=== PATIENT | female | born 1970 | race Caucasian/White ===

== ENCOUNTER 2020-04-01 04:46 | Inpatient (IN) | payer SELFPAY ==
[2020-04-01] VITALS (13 sets, daily range): BP systolic 77–126; BP diastolic 47–93; PULSE 87–131; RESP 12–23; TEMP 36–36.8; O2SAT 94–98; BMI 20.4
--- NOTE | ~2020-04-01 | XR_ITS ---
EXAMINATION: XR chest 1V portable DATE: 04/01/2020 06:13 INDICATION: Shortness of breath. TECHNIQUE: A single frontal view of the chest was obtained. COMPARISON: None. FINDINGS: There is a diffuse interstitial pattern, consistent with mild pulmonary edema. There are ai rspace opacities in right perihilar region and left lower lung zone. No pleural effusion or pneumotho rax. The heart size is normal. IMPRESSION: 1. Mild pulmonary edema. 2. Airspace opacities in right perihilar region and left lower lung zone, consistent with atelectasis versus pneumonia. Reviewed, dictated and finalized at location A. IMPRESSION: 1. Mild pulmonary edema. 2. Airspace opacities in right perihilar region and left lower lung zone, consi stent with atelectasis versus pneumonia.
--- NOTE | 2020-04-01 04:50 | ED.SOB ---
HPI - SOB/Dyspnea General Chief Complaint: Shortness of Breath/Dyspnea Stated Complaint: sob Time Seen by Provider: 04/01/20 04:50 History of Present Illness HPI Narrative: She reports that she just can't catch her breath and she has pressure in her chest. She reports that she was just admitted to a hospital in [place] for an NE. They were going to take her to the labeling specialist, but she signed out AMA. History limited by patient condition Related Data Home Medications Medication Instructions Recorded Confirmed No Home Medications 04/01/20 04/01/20 Allergies Allergy/AdvReac Type Severity Reaction Status Date / Time codeine AdvReac Itching Verified 04/01/20 05:01 Review of Systems Review of Systems: ROS unobtainable: Yes unobtainable due to medical condition Cardiovascular: Cardiovascular: Reports chest pain Respiratory: Respiratory: Reports dyspnea [facility] Past Medical History Medical History (Updated 04/01/20 @ 06:18 by Eriberto Rothman MD) CAD (coronary artery disease) Social History Social History (Updated 04/01/20 @ 06:02 by Eriberto Rothman MD) Smoking status: Current every day smoker Exam Const: General: alert and ill appearing Other: moderate distress HENMT: Head: normal to inspection Resp: Effort & Inspection: tachypneic Auscultation: clear to auscultation bilaterally Cardio: Rate: tachycardic Rhythm: regular rhythm GI: GI Palp: Yes Soft to palpation and No Tenderness to palpation present (GI) Skin: General skin exam: normal color Neuro: General: patient oriented x3 and moves all extremities Extrem: General: no edema Course Vital Signs Vital signs: Vital Signs Temperature 36.8 C 04/01/20 04:50 Pulse Rate 131 H 04/01/20 04:50 Respiratory Rate 23 H 04/01/20 04:50 Blood Pressure 126/93 H 04/01/20 04:50 Pulse Oximetry 98 04/01/20 04:50 Temperature 36.8 C 04/01/20 04:50 Pulse Rate 131 H 04/01/20 04:50 Respiratory Rate 23 H 04/01/20 04:50 Blood Pressure 126/93 H 04/01/20 04:50 Pulse Oximetry 98 04/01/20 04:50 MDM - SOB/Dyspnea MDM Narrative Medical decision making narrative: Attempting to obtain medical records. EKG shows LBBB. No acute changes. Troponin 0.188. Case discussed with cardiology. They recommend admitting and keeping NPO. Differential Diagnosis Differential diagnosis: Likely other (STEMI, NSTEMI, anxiety attack, COPD) Medical Records Attestation: I reviewed the patient's medical records. Lab Data Attestation: I reviewed the patient's lab results. Result diagrams: 04/01/20 05:09 04/01/20 05:09 Labs: Lab Results 04/01/20 04/01/20 04/01/20 Range/Units 05:09 05:09 05:09 WBC 6.7 (4.5-10.0) K/mm3 RBC 3.51 L (4.2-5.4) M/mm3 Hgb 11.6 L (12.0-15.0) g/dL Hct 33.6 L (37.0-47.0) % MCV 95.7 (80-100) fl MCH 33.0 (26-34) pg MCHC 34.5 (32-36) g/dl RDW 15.2 H (11.5-14.5) % Plt Count 417 H (150-375) k/mm3 MPV 8.8 (7.4-10.4) fl Immature Gran % (Auto) 0.3 (0-0.5) % Neut % (Auto) 50.8 (45.5-73.1) % Lymph % (Auto) 40.0 (18.3-44.2) % Woods % (Auto) 5.8 (2.6-8.5) % Eos % (Auto) 2.5 (0-4.4) % Baso % (Auto) 0.6 (0.2-1.2) % Lymph # (Auto) 2.67 (0.9-3.2) K/mm3 Woods # (Auto) 0.4 (0.1-0.6) K/mm3 Eos # (Auto) 0.2 (0-0.3) K/mm3 Baso # (Auto) 0.0 (0.0-0.1) K/mm3 Abs Immat Gran (auto) 0.02 (0.00-0.031) K/mm3 Absolute Neuts (auto) 3.4 (1.3-6.7) K/mm3 Absolute Nucleated RBC 0.0 (0.0-0.012) K/mm3 Nucleated RBC % 0.0 (0.0-0.2) % PT 12.2 (11.1-14.7) Seconds INR 0.9 APTT 26.4 (22.3-36.8) SECONDS Sodium 138 (137-145) mmol/L Potassium 3.8 (3.4-5.0) mmol/L Chloride 109 H (98-107) mmol/L Carbon Dioxide 25 (22-30) mmol/L BUN 9 (7-17) mg/dL Creatinine 0.80 (0.7-1.0) mg/dL Estim Creat Clear Calc 66 ml/min Estimated GFR > 60 (59 - ) Glucose 135 H (65-105)
[2020-04-01] MEDS: LORAZEPAM INJ 2 MG/ML VIAL 1 MG IV PUSH (05:03)
--- NOTE | 2020-04-01 05:03 | ECG_ITS ---
Measurements Intervals [place] Rate: 84 P: 78 [place]: 105 QRS: 27 QRSD: 152 T: 260 QT: 356 QTc: 422 Interpretive Statements SINUS RHYTHM WITH SHORT [place] INTERVAL LEFT ATRIAL ENLARGEMENT LEFT BUNDLE BRANCH BLOCK BASELINE ARTIFACT- I, II, III, AVL, AVF, V1-V2 ABNORMAL ECG Electronically Signed On 04-01-2020 7:08:27 CDT by Rogelio Rothman D.O.
[2020-04-01 05:19] LABS: Basophils Percent Auto 0.6 % (0.2-1.2); Eosinophils Absolute Auto 0.2 K/mm3 (0-0.3); Eosinophils Percent Auto 2.5 % (0-4.4); Hematocrit 33.6 % (37.0-47.0); Hemoglobin 11.6 g/dL (12.0-15.0); Immature Granulocyte Absolute 0.02 K/mm3 (0.00-0.031); Immature Granulocyte Percent A 0.3 % (0-0.5); Lymphocytes Absolute Auto 2.67 K/mm3 (0.9-3.2); Mean Corpuscular HGB Conc 34.5 g/dl (32-36); Mean Corpuscular Volume 95.7 fl (80-100); Mean Platelet Volume 8.8 fl (7.4-10.4); Monocytes Absolute Auto 0.4 K/mm3 (0.1-0.6); Monocytes Percent Auto 5.8 % (2.6-8.5); Neutrophils Absolute Auto 3.4 K/mm3 (1.3-6.7); Neutrophils Percent Auto 50.8 % (45.5-73.1); Platelet Count Result 417 k/mm3 (150-375); Red Blood Count 3.51 M/mm3 (4.2-5.4); Red Cell Distribution Width 15.2 % (11.5-14.5); White Blood Count 6.7 K/mm3 (4.5-10.0)
[2020-04-01 05:30] LABS: Alanine Aminotransferase 24 U/L (4-35); Albumin Level 3.6 g/dL (3.5-5.1); Alkaline Phosphatase 102 U/L (38-126); Aspartate Amino Transferase 25 U/L (14-36); Bilirubin,Total 0.2 mg/dL (0.2-1.3); Blood Urea Nitrogen 9 mg/dL (7-17); Calcium 8.7 mg/dL (8.4-10.2); Carbon Dioxide 25 mmol/L (22-30); Chloride 109 mmol/L (98-107); Estimated CRCL calculation 66 ml/min; Estimated Glomerular Filt Rate > 60; Glucose 135 mg/dL (65-105); INR 0.9; Partial Thromboplastin Time 26.4 SECONDS (22.3-36.8); Potassium 3.8 mmol/L (3.4-5.0); Prothrombin Time 12.2 Seconds (11.1-14.7); Sodium 138 mmol/L (137-145)
[2020-04-01 05:45] LABS: Troponin I 0.188 ng/mL (0.000-0.034)
--- NOTE | 2020-04-01 06:23 | ECG_ITS ---
Measurements Intervals [place] Rate: 111 P: 74 DC: 132 QRS: 24 QRSD: 165 T: 268 QT: 401 QTc: 546 Interpretive Statements SINUS TACHYCARDIA LEFT ATRIAL ENLARGEMENT LEFT BUNDLE BRANCH BLOCK ABNORMAL ECG Electronically Signed On 04-01-2020 7:09:29 CDT by Rogelio Rothman D.O.
[2020-04-01] MEDS: HEPARIN SODIUM 5,000 UNITS/ML VIAL 3500 UNITS IV PUSH (06:42)
[2020-04-01] MEDS: HEPARIN SOD/D5W 100 UNITS/ML 25,000 UNITS/250 ML BAG 7 UNITS IV CONT (06:43)
[2020-04-01] MEDS: CLOPIDOGREL BISULFATE 300 MG TABLET PO (06:48)
--- NOTE | 2020-04-01 07:58 | PC.NURSE ---
pt noted to be sleeping, ra saturation at 88-89%, placed on 2L via NC.
--- NOTE | 2020-04-01 08:04 | PC.NURSE ---
This patient, Britney Alcala, was admitted to IMU Room 212-01. Patient/family oriented to hospital policies and general routines including ID bracelet, bed and alarms, visiting hours, pain management, procedures, bathroom and other care routines, personal items, smoking policy, room service/diet, and visiting hours. Valuables list has been completed. Information on how to activate the Rapid Response Team has been discussed. Patient/Family are encouraged to report perceived risks to care and to ask questions if they do not understand what they are told or what they should do.
[2020-04-01 08:54] LABS: Troponin I 0.174 ng/mL (0.000-0.034)
--- NOTE | 2020-04-01 08:57 | PM.CNCAR ---
Assessment and Plan Additional Plan This is a 49-year-old white female with apparent coronary artery disease with a hospitalization 10 days ago used in [place] where she apparently had a myocardial infarction. After this she has a left bundle-branch block. Angiography was recommended and as stated above refused by the patient because she was told they would not perform the procedure with anesthesia. She then left the hospital against medical advice. She has therefore not been taking any medications for her heart disease. She enters the hospital now with what appears to be some left-sided congestive heart failure symptoms of shortness of breath coughing or and orthopnea. She does have a 3rd heart sound on physical exam no cardiac murmurs. Today I would recommend initiating beta-bhavana, MUKUL-inhibitor and diuretic treatment for her ischemic heart disease and presumed ischemic LV dysfunction. Obviously I would normally recommend aspirin which at the moment she is refusing. An echocardiogram will be done today to assess the extent of LV systolic dysfunction that she currently has. Hopefully when she is breathing more comfortably later in the week she can undergo angiography and hopefully by then she will become agreeable to taking anti-platelet therapy. I did stress to the patient that we are significantly handicapped in terms of what treatment we can offer if she cannot take/or refuses to take anti-platelet agent Nathan Christina MD [facility] History of Present Illness History of Present Illness Consult date/time: Date of service: 04/01/20 08:57 Consult reason: shortness of breath Reason For Visit: NSTEMI Narrative: This is a 49-year-old lady of seeing at the request of the hospitalist this morning because of shortness of breath that she for which she was seen in the emergency room a short time ago this morning. Patient indicated that she has previously not known to have any cardiac problems until she was hospitalized in [facility] and was told that she had suffered a myocardial infarction. She states that this occurred 10 days ago. She was down in [place] on vacation was shopping in [employer] and became suddenly symptomatic with relatively severe retrosternal chest pain. She says she had a episode of symptoms like this there were mild earlier in the day. This was quite severe so she called EMS and was taken to a local hospital in [place]. She states she was hospitalized there for about 48 hours and catheterization was recommended and the patient left the hospital against medical advice. She states the reason she chose to do this is because she was told that she could not be put to sleep with anesthesia for an angiogram and she indicated she was not capable of tolerating procedures such as this without being under general anesthesia. She therefore has not been taking any medication at all and in the last several days has been noticing symptoms of progressively worsening shortness of breath she describes in the last 2-3 days she has been on in capable of laying down to go to sleep without having to wake up and sit up to avoid shortness of breath. She also coughed violently when she lays down in the supine position. She no longer having any of the chest pain that she described 10 days ago that led to the hospitalization in [place]. She again she denies any previous knowledge of coronary artery disease. She has this severe concerned about needing to be anesthetized for procedures which stem from the difficulties she has had undergoing procedures to treat her Crohn's disease. She states that she has a longstanding history of Crohn's disease since she was a teenager. She has had some colonoscopies as well as some laparoscopic procedures and she states that she is unable to tolerate anything at all without being under general anesthetic or she becomes combative and impossible to control. She is currently uncomfortable with her breathing sitting up in bed and is not r
--- NOTE | 2020-04-01 09:00 | ECHO_ITS ---
Patient Info Name: Britney Alcala Age: 49 years : 1970 Gender: Female Ht: 67 in Wt: 130 lbs BSA: 1.67 m2 HR: 100 bpm BP: 106 / 72 mmHg Heart Rhythm: Left Bundle Branch Block, Sinus Rhythm Technical Quality: Good Exam Date: 04/01/2020 10:09 AM Exam Location: [facility] Patient Status: Inpatient Admit Date: 04/01/2020 Staff Ordering Physician: Nathan Christina MD Athletic Monitor: Mac Bailey RDCS Attending Provider: Saray Carrasquillo DO Referring Physician: Sanford MAKI; Exam Type: CA echo doppler color flow Study Info Indications I21.4 - Non-ST elevation (NSTEMI) myocardial infarction Complete two-dimensional, color flow and Doppler transthoracic echocardiogram is performed. Strain analysis performed. History/Risk Factors NSTEMI; SOB, chest pain, LBBB. Summary 1. Left ventricular chamber dimension is severely enlarged. 2. Left ventricular systolic function is severely reduced, estimated at 25-30%. 3. Left ventricular septal wall motion is abnormal with septal motion related to bundle branch block. 4. E/e' 32.1 is severely elevated. 5. Global longitudinal strain is severely elevated at -6 %. 6. Moderate pulmonary hypertension, estimated pulmonary arterial systolic pressure is 53 mmHg. 7. There is moderate mitral valve regurgitation. 8. There is mild to moderate tricuspid valve regurgitation. 9. There is small pericardial effusion. No clear tamponade physiology, however, slight right atrial free wall invagination noted suggestive increased intrapericardial pressures. Left Ventricle Left ventricular chamber dimension is severely enlarged. Left ventricular systolic function is severely reduced, estimated at 25-30%. There is no increased left ventricular wall thickness. Left ventricular septal wall motion is abnormal with septal motion related to bundle branch block. The left ventricular diastolic function is abnormal. There is no thrombus visualized in the left ventricle. E/e' 32.1 is severely elevated. Global longitudinal strain is severely elevated at -6 %. Right Ventricle Right ventricular chamber dimension is normal. Right ventricular systolic function is reduced. Left Atria Left atrial chamber dimension is mildly enlarged. Right Atria Right atrial chamber dimension is normal. Aortic Valve The aortic valve is trileaflet. There is no aortic valve stenosis. There is no aortic valve regurgitation. Pulmonic Valve The pulmonic valve is not well visualized. There is trace pulmonic regurgitation. Mitral Valve The mitral valve has normal leaflets. There is moderate mitral valve regurgitation. Tricuspid Valve The tricuspid valve leaflets are normal. There is mild to moderate tricuspid valve regurgitation. Moderate pulmonary hypertension, estimated pulmonary arterial systolic pressure is 53 mmHg. Pericardium/Pleural The pericardium appears normal. There is small pericardial effusion. No clear tamponade physiology, however, slight right atrial free wall invagination noted suggestive increased intrapericardial pressures. Inferior Vena Cava Normal inferior vena cava with >50% collapse upon inspiration consistent with normal right atrial pressure, 5 mmHg. Aorta The aortic root size at the sinus of Valsalva is normal. Left Ventricular Outflow Tract Name Value Normal
[2020-04-01] MEDS: SPIRONOLACTONE 25 MG TABLET PO (10:40)
[2020-04-01] MEDS: FUROSEMIDE INJ 40 MG/4 ML VIAL 20 MG IV PUSH (10:41)
[2020-04-01] MEDS: carvediloL 3.125 MG TABLET PO (10:41)
[2020-04-01] MEDS: lisinopriL 5 MG TABLET PO (10:41)
[2020-04-01 11:54] LABS: Troponin I 0.178 ng/mL (0.000-0.034)
[2020-04-01 13:13] LABS: Partial Thromboplastin Time 34.8 SECONDS (22.3-36.8)
[2020-04-01] MEDS: HEPARIN SODIUM 5,000 UNITS/ML VIAL 4000 UNITS IV PUSH (13:28)
--- NOTE | 2020-04-01 17:41 | PC.NURSE ---
RN entered patient's room upon request to give pain medication. Patient began to scream at RN That isn't what he told me. He told me he would give me something to knock me out. I don't want Flexeril. I want pain medication. I need something to help me sleep. You guys aren't doing anything to help me. RN informed the patient that we are treating her with medication and testing. Lighting Fixtures Decorator planned on doing tests in a few days but that we had to treat some of her other symptoms prior to doing the catherization. Pt didn't like the answer and wanted to go home. Explained risks of leaving AMA. Pt stated I don't care. I want to go home. IV removed, pt refused to sign AMA paperwork. Pt escorted out of building by [employer]. Dr. Tong notified.
--- NOTE | 2020-04-01 18:51 | PM.IMHP ---
H&P: HPI History of Present Illness Chief complaint: NSTEMI Narrative: Britney Alcala is a 49 year old female presented emergency department with a complaint of chest pain shortness of breath patient pain was getting worse and she was not able to sleep, patient states this he was initially seen in [place] and was found to have myocardial Infarction and was recommended to have a cardiac catheterization however patient refused and left AMA, now patient presents here further evaluation, patient is found to have non STEMI, patient seen by wireless consultant recommending the patient will need cardiac catheterization however currently patient is symptoms with persistent shortness of breath most likely secondary systolic dysfunction patient is being diuresed, once patient is clinically stable may have cardiac catheterization however patient has a history of Crohn disease and patient is refusing to take any antiplatelets which is essential to treat the patient coronary artery disease, patient is a very poor history and difficult to communicate, will continue was recommended by the wireless consultant and further evaluation to follow Review of Systems Review of Systems: ROS unobtainable: Yes unobtainable due to medical condition PMFSH Past Medical History Medical History (Updated 04/01/20 @ 06:18 by Eriberto Rothman MD) CAD (coronary artery disease) Social History Social History (Updated 04/01/20 @ 06:02 by Eriberto Rothman MD) Smoking packs per day: 1 Smoking cigarettes per day: 20.0 Smoking status: Current every day smoker Tobacco type: cigarettes Alcohol intake: never Substance use: never Spiritual care concerns: No Meds Home Medications and Allergies Home Medications Medication Instructions Recorded Confirmed Type No Home Medications 04/01/20 04/01/20 History Allergies Allergy/AdvReac Type Severity Reaction Status Date / Time codeine AdvReac Itching Verified 04/01/20 05:01 NSAIDS (Non-Steroidal AdvReac Other Verified 04/01/20 06:32 Anti-Inflamma Vital Signs Vital Signs - 24 hr 04/01/20 04:50 04/01/20 06:04 04/01/20 06:45 Temperature 98.2 F Pulse Rate 131 H 98 Respiratory Rate 23 H 16 Blood Pressure 126/93 H 109/76 Pulse Oximetry 98 94 95 04/01/20 07:48 04/01/20 08:00 04/01/20 09:40 Temperature 96.8 F L Pulse Rate 103 H 100 Respiratory Rate 18 18 Blood Pressure 116/84 106/72 Pulse Oximetry 94 98 95 04/01/20 10:00 04/01/20 10:41 04/01/20 11:55 Temperature 97.1 F L Pulse Rate 102 H 101 H 95 Respiratory Rate 12 Blood Pressure 112/55 L Pulse Oximetry 94 04/01/20 12:00 04/01/20 14:00 04/01/20 15:24 Temperature Pulse Rate 96 87 90 Respiratory Rate 16 Blood Pressure 77/47 L Pulse Oximetry 95 04/01/20 16:00 Temperature 97.1 F L Pulse Rate 91 Respiratory Rate 12 Blood Pressure 109/59 L Pulse Oximetry 94 Exam Narrative: Exam Narrative: Patient appears chronically ill older than her age Const: General: no acute distress and uncomfortable HENMT: General nose exam: Normal nares present Mouth: Yes moist mucous membranes Eyes: General: appearance normal, both eyes and all related structures Sclera: sclerae normal Neck: Neck: supple Resp: Effort & Inspection: normal respiratory effort Auscultation: clear to auscultation bilaterally Cardio: Rate: regular rate Rhythm: regular rhythm GI: Auscultation: normal bowel sounds Other: Diffusely tender Skin: General skin exam: normal color Neuro: Speech: normal speech Sensory Exam: normal sensation Extrem: General: normal to inspection Psych: Affect: Anxious affect present H&P: Results Labs Labs: Short CBC 04/01/20 Range/Units 05:09 WBC 6.7 (4.5-10.0) K/mm3 Hgb 11.6 L (12.0-15.0) g/dL Hct 33.6 L (37.0-47.0) % Plt Count 417 H (150-375) k/mm3 BMP 04/01/20 05:09 Sodium 138 Potassium 3.8 Chloride 109 H Carbon Dioxide 25 BUN 9 Creatinine 0
--- NOTE | 2020-04-26 12:09 | P.DS_ITS ---
DS: Admitting Diagnosis Admitting Diagnosis Admitting Diagnosis: Non-ST elevation (NSTEMI) myocardial infarction DS: Summary Hospital Course Reason for hospitalization: Britney Alcala is a 49 year old female presented emergency department with a complaint of chest pain shortness of breath patient pain was getting worse and she was not able to sleep, patient states this he was initially seen in [place] and was found to have myocardial Infarction and was recommended to have a cardiac catheterization however patient refused and left AMA, now patient presents here further evaluation, patient is found to have non STEMI, patient seen by cluster bore operator recommending the patient will need cardiac catheterization however currently patient is symptoms with persistent shortness of breath most likely secondary systolic dysfunction patient is being diuresed, once patient is clinically stable may have cardiac catheterization however patient has a history of Crohn disease and patient is refusing to take any antiplatelets which is essential to treat the patient coronary artery disease, patient is a very poor history and difficult to communicate, will continue was recommended by the cluster bore operator and further evaluation to follow Hospital Course: Patient left AMA Time Spent with Patient Time attestation: Total time spent providing and/or coordinating discharge services: Exam Narrative: Exam Narrative: Patient left AMA Discharge Plan Discharge Consulting providers: Sherwin Kaur ; Nathan Christina ; Rogelio Rothman ; Mervin Levine V. ; Royal Palacios Patient Disposition: Left Against Medical Advice Discharge Instructions: Patient left AMA Patient Instructions: How to Stop Smoking (GEN) Discharge Medications: No Action No Home Medications RF: 0 Date of admission: 04/01/20 06:14 Primary Care Provider: PHYSICIAN,BUSINESS CONSULTANT Admitting Provider: Saray Carrasquillo Discharge Date/Time: 04/01/20 17:30 Attending physician on admission: Edie Tong Condition: Improved
== END 2020-04-01 17:30 | disposition left against medical advice (07) | DRG 190 ==
LOC: ANHED 06:18 → ANHIMU 09:25
PROVIDERS: Specialist; Admitting Provider Internal Medicine; Emergency Provider Emergency Medicine; Visit Provider Family Medicine
DX: I21.4 Non-ST elevation (NSTEMI) myocardial infarction (principal); I25.10 Atherosclerotic heart disease of native coronary artery without angina pectoris; I44.7 Left bundle-branch block, unspecified; K50.90 Crohn's disease, unspecified, without complications; F17.210 Nicotine dependence, cigarettes, uncomplicated; Z53.29 Procedure and treatment not carried out because of patient's decision for other reasons
CPT/HCPCS: 36415; 71045; 80053; 84484; 85025; 85610; 85730; 93005; 93306; 96365; 96375; 99285; A9270; J1644; J1940; J2060